=== PATIENT | female | born 1995 | race Caucasian/White ===

== ENCOUNTER → 2018-01-13 | Outpatient (REF) | payer OTHER ==
[~2018-01-13] MED LIST: ACEC5L PO; ALPR-1 PO; AMO500 PO; AZIT-17 PO; CIPR-326 PO; CITA-156 PO; FLUT16SP19 NS; HYDR115S3 PO; LEVO1TAB30 PO; LEVO1TAB9 PO; NO ROUTINE MEDS; PHEN-529 PO; PRE20 PO; SERT-1 PO; SERT-181 PO; TRAZ-156 PO
== END ==
PROVIDERS: ATTEND Nurse Practitioner Family
DX: R30.0 Dysuria (principal); R82.99 Other abnormal findings in urine
CPT/HCPCS: 87088

== ENCOUNTER 2019-01-30 16:20 | Emergency (ER) | payer OTHER ==
[~2019-01-30 16:20] MED LIST changes: -TRAZ-156 PO; +TRAZ50TA34 PO
[2019-01-30] MEDS ORDERED: VENL37.594 PO (16:27)
[2019-01-30] MEDS ORDERED: VENL150C61 PO (16:27)
--- NOTE | 2019-01-30 16:31 | ER Report ---
History and Physical Time Seen By MD: 16:30 Hx. of Stated Complaint: N/V SINCE TUESDAY. STATES KIDNEY INFECTION STARTED TUESDAY AND SHE GOT AN ANTIBIOTIC TODAY FOR IT FROM PCP. CAME IN NOW FOR DEHYDRATION HPI/ROS CHIEF COMPLAINT: Abdominal pain, nausea, vomiting HISTORY OF PRESENT ILLNESS: 23-year-old female patient presents to emergency room with complaint of abdominal pain, nausea, vomiting. Patient states that she has been having abdominal pain for the past several days. She believes that she had a urinary tract infection. 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 Patient states with her primary care provider today who diagnosed with urinary tract infection start her on medication and gave her Zofran. Patient states that she has had worsening pain in the abdomen, she rates it a 7 out of 10. As well as has not been able to keep any food down for the past 2 days. Patient states she has been feverish at home, she's been sweaty, she's been chilled. REVIEW OF SYSTEMS: Respiratory: No cough, no dyspnea. Cardiovascular: No chest pain, no palpitations. Gastrointestinal: As noted above Musculoskeletal: No back pain. Allergies: Coded Allergies: Sulfa (Sulfonamide Antibiotics) (Verified Allergy, Unknown, NAUSEA, HIVES, 12/17/15) Home Meds Active Scripts Hydrocodone Bit/Acetaminophen (HYDROCODON-ACETAMINOPHEN 5-325) 1 Each Tablet, 1 EACH PO Q4-6H PRN for PAIN, #8 TAB Prov:WENDY VALENTE 01/30/19 Sertraline Hcl (ZOLOFT) 50 Mg Tablet, 1 TAB PO QDAY, #30 TAB 5 Refills in addition to 100 mg for total of 150 mg daily Prov:ADELAIDE WINTERS MD 10/05/16 Reported Medications Venlafaxine Hcl (EFFEXOR XR) 150 Mg Cap.er.24h, 150 MG PO QDAY 01/30/19 Venlafaxine Hcl (EFFEXOR XR) 37.5 Mg Cap.er.24h, 37.5 MG PO QDAY 01/30/19 Discontinued Scripts Levonorgestrel-Eth Estradiol (KURVELO) 1 Each Tablet, 1 TAB PO QDAY, #28 TAB 0 Refills Prov:ADELAIDE WNITERS MD 03/06/17 Fluticasone Prop 50 Mcg Ns (FLONASE 50 MCG NS) 16 Gm [place].susp, 2 SPRAYS NS QDAY, #1 BOT 1 Refill Prov:KIM SIN MD 10/25/16 Sertraline Hcl (SERTRALINE HCL) 100 Mg Tablet, 1 TAB PO QDAY, #30 TAB 5 Refills in addition to 50 mg for total of 150 mg Prov:ADELAIDE WINTERS MD 10/05/16 Past Medical/Surgical History Patient has a past medical history of frequent UTI, alcohol use, depression, anxiety. Patient has a surgical history of abdominal surgery, breast reduction. Reviewed Nurses Notes: Yes Hx Smoking: Yes Smoking Status: Former Smoker Hx Substance Use Disorder: No Hx Alcohol Use: Yes (rare) Constitutional Vital Sign - Last 24 Hours 01/30/19 01/30/19 01/30/19 16:23 16:30 19:54 Temp 100.0 98.7 Pulse 104 98 Resp 18 B/P (MAP) 118/74 107/72 (84) Pulse Ox 97 95 O2 Delivery Room Air Physical Exam General Appearance: The patient is alert, has no immediate need for airway protection and no current signs of toxicity. Respiratory: Chest is non tender, lungs are clear to auscultation. Cardiac: regular rate and rhythm Gastrointestinal: Abdomen is soft and diffusely tender, no masses, bowel sounds normal. Musculoskeletal: Neck: Neck is supple and non tender. Extremities have full range of motion and are non tender. Skin: No rashes or lesions. DIFFERENTIAL DIAGNOSIS: After history and physical exam differential diagnosis was considered for abdominal pain including but not limited to appendicitis, cholecystitis, gastritis and urinary tract infection. Medical Decision Making Data Points Laboratory Hematology Test 01/30/19 19:24 Urine Color Yellow Urine Clarity Clear Urine pH 6.0 pH (4.8-9.5) Urine Specific [place] 1.044 Urine Protein 30 mg/dL (NEGATIVE) Urine Glucose (UA) Negative mg/dL (NEGATIVE) Urine Ketones 80 mg/dL (NEGATIVE) Urine Blood Moderate (NEGATIVE) Urine Nitrite Positive (NEGATIVE) Urine Bilirubin Negative (NEGATIVE) Urine Urobilinogen Negative mg/dL (0.2-1.9) Urine Leukocyte Esterase Trace (NEGATIVE) Urine RBC 12 /HPF (0-2/HPF) Urine WBC 25 /HPF (0-5/HPF) Urine Squamous Epithelial Cells Many /LPF (</=FEW) Urine Bacteria Negative /HPF (NONE-FEW) Urine Mucus None /HPF (NONE-FEW) Chemistry Test 01/30/19 19:24 Urine Color Yellow Urine Clarity Clear Urine pH 6.0 pH (4.8-9.5) Urine Specific [place] 1.044 Urine Protein 30 mg/dL (NEGATIVE) Urine Glucose (UA) Negative mg/dL (NEGATIVE) Urine Ketones 80 mg/dL (NEGATIVE) Urine Blood Moderate (NEGATIVE) Urine Nitrite Positive (NEGATIVE) Urine Bilirubin Negative (NEGATIVE) Urine Urobilinogen Negative mg/dL (0.2-1.9) Urine Leukocyte Esterase Trace (NEGATIVE) Urine RBC 12 /HPF (0-2/HPF) Urine WBC 25 /HPF (0-5/HPF) Urine Squamous Epithelial Cells Many /LPF (</=FEW) Urine Bacteria Negative /HPF (NONE-FEW) Urine Mucus None /HPF (NONE-FEW) Urinalysis Test 01/30/19 19:24 Urine Color Yellow Urine Clarity Clear Urine pH 6.0 pH (4.8-9.5) Urine Specific [place] 1.044 Urine Protein 30 mg/dL (NEGATIVE) Urine Glucose (UA) Negative mg/dL (NEGATIVE) Urine Ketones 80 mg/dL (NEGATIVE) Urine Blood Moderate (NEGATIVE) Urine Nitrite Positive (NEGATIVE) Urine Bilirubin Negative (NEGATIVE) Urine Urobilinogen Negative mg/dL (0.2-1.9) Urine Leukocyte Esterase Trace (NEGATIVE) Urine RBC 12 /HPF (0-2/HPF) Urine WBC 25 /HPF (0-5/HPF) Urine Squamous Epithelial Cells Many /LPF (</=FEW) Urine Bacteria Negative /HPF (NONE-FEW) Urine Mucus None /HPF (NONE-FEW) EKG/Imaging Imaging COMPUTED TOMOGRAPHY OF THE Abdomen and Pelvis with CONTRAST INDICATION: Diffuse abdominal pain. Fever. TECHNIQUE: Contiguous axial 3.[address] images were obtained through the abdomen and pelvis after 75 cc [id number]-[id number]. Coronal and sagittal reformatted images were submitted. COMPARISON: CT abdomen and pelvis February 24, 2014. FINDINGS: Lung bases: Trace atelectasis at the lung bases. Liver and hepatic vasculature: No focal liver lesion. Minimal fatty infiltra tion adjacent to the falciform. Gallbladder and bile ducts: Normal gallbladder. Spleen: Normal Pancreas: Normal Adrenals: Normal Kidneys, ureters and bladder: There is heterogeneous disc enhancement of the right kidney. No stone. Minimal stranding adjacent to the proximal right ureter. Normal-appearing bladder. Normal enhancement of the left kidney. Retroperitoneum and aorta: Normal caliber aorta. GI tract, mesentery and peritoneum: Surgically absent appendix. No bowel obstruction. No free fluid or free air. Uterus and adnexa: Unremarkable uterus. There is a 3.4 cm septated cystic structure in the right adnexa. Bones and soft tissues: No acute osseous abnormality. IMPRESSION: 1. Dusky heterogeneous enhancement of the right kidney suggest pyelonephritis. 2. Complex cyst, conglomerate of cysts, or cystic lesion at the right ovary. Nonemergent pelvic ultrasound recommended to evaluate the septation. One of the following dose optimization techniques was utilized in the performance of this exam: Automated exposure control; adjustment of the mA and/or kV according to the patient's size; or use of an iterative reconstruction technique. Specific details can be referenced in the facility's radiology CT exam operational policy. Report Dictated By: Gigi Torres MD at 01/30/2019 6:29 PM Report E-Signed By: Gigi Torres MD at 01/30/2019 6:35 PM ED Course/Re-evaluation ED Course Patient was admitted to an exam room, history and physical were obtained. Differential diagnoses were considered. On examination lungs are clear, heart is regular, abdomen is soft and tender. An IV was started. I did want to get a CBC, CMP. However were not able to get blood out of the IV and took several attempts. We'll go ahead and do the CT scan of the abdomen and pelvis. The CT scan did show signs of pyelonephritis which are consistent with her urinary tract infection as well as her nausea and vomiting. Patient received a liter of normal saline. She did feel better. I did go ahead and give HER-2 grams of Rocephin IV. Patient was able to give us urine sample and we did get a urine culture. Patient complaining of significant amounts of esophageal pain. I believe is likely secondary to the vomiting. However I did do an x-ray which showed no acute cardiopulmonary processes. Patient was then given a GI cocktail. She states that did help with her pain. Patient was able to tolerate drinking. Patient was given some oral pain medication which seemed to help. We'll go ahead and discharge patient home at this time. She is continue the Cipro which was started by her primary care provider. Will change antibiotics depending on the culture. It is my hope that the IV antibiotics will jumpstart improvement with the infection. She is return to emergency room if condition worsens. She states follow-up with her primary care provider in the next week. Patient verbalized understanding and agreement with plan. Decision to Disposition Date: Jan 30, 2019 Decision to Disposition Time: 20:47 Depart Departure Latest Vital Signs Vital Signs Date Time Temp Pulse Resp B/P (MAP) Pulse Ox O2 Delivery O2 Flow Rate FiO2 01/30/19 19:54 98.7 01/30/19 16:30 98 107/72 (84) 95 01/30/19 16:23 18 Room Air Impression: Primary Impression: Pyelonephritis Condition: Improved Disposition: HOME OR SELF-CARE New Scripts Hydrocodone Bit/Acetaminophen (HYDROCODON-ACETAMINOPHEN 5-325) 1 Each Tablet 1 EACH PO Q4-6H PRN for PAIN, #8 TAB Prov: WENDY VALENTE 01/30/19 Patient Instructions: Urinary Tract Infection in Women (ED) Additional Instructions: Increase fluid intake. Get plenty of rest. Limit activity by pain. Take the medication as needed for nausea and vomiting. Return to the ER if condition worsens. Follow up with your primary care provider in the next week. We are culturing the urine so if we need to change antibiotics we will know in 3 days. Continue with the Cipro. WENDY VALENTE Jan 30, 2019 16:31
[2019-01-30] MEDS ORDERED: NS(*) 0.9% 1000 ML BAG 1,000 ML IV ONE ×2 (16:38→18:55)
[2019-01-30] MEDS ORDERED: ONDANSETRON 4 MG/2 ML VIAL IVP ONE (16:40)
[2019-01-30] MEDS ORDERED: MORPHINE 2 MG/ML SYR IVP ONE (16:40)
[2019-01-30] MEDS ORDERED: IOPAMIDOL 76% 150 ML INFUS BTL 150 ML ONE (16:51)
--- NOTE | 2019-01-30 18:39 | RADIOLOGY IMAGING REPORT ---
FACILITY: [facility] PATIENT NAME: Becky Crook : 1995 MR: [id number] V: [id number] EXAM DATE: [id number] ORDERING PHYSICIAN: WENDY VALENTE TECHNOLOGIST: Location: [facility] [place] Patient: Becky Crook : 1995 Visit/Account:[id number] Date of Sevice: 01/30/2019 COMPUTED TOMOGRAPHY OF THE Abdomen and Pelvis with CONTRAST INDICATION: Diffuse abdominal pain. Fever. TECHNIQUE: Contiguous axial 3.[address] images were obtained through the abdomen and pelvis after 75 c c Isovue-[id number]. Coronal and sagittal reformatted images were submitted. COMPARISON: CT abdomen and pelvis February 24, 2014. FINDINGS: Lung bases: Trace atelectasis at the lung bases. Liver and hepatic vasculature: No focal liver lesion. Minimal fatty infiltration adjacent to the fal ciform. Gallbladder and bile ducts: Normal gallbladder. Spleen: Normal Pancreas: Normal Adrenals: Normal Kidneys, ureters and bladder: There is heterogeneous disc enhancement of the right kidney. No stone. Minimal stranding adjacent to the proximal right ureter. Normal-appearing bladder. Normal enhancemen t of the left kidney. Retroperitoneum and aorta: Normal caliber aorta. GI tract, mesentery and peritoneum: Surgically absent appendix. No bowel obstruction. No free fluid o r free air. Uterus and adnexa: Unremarkable uterus. There is a 3.4 cm septated cystic structure in the right adne xa. Bones and soft tissues: No acute osseous abnormality. IMPRESSION: 1. Dusky heterogeneous enhancement of the right kidney suggest pyelonephritis. 2. Complex cyst, conglomerate of cysts, or cystic lesion at the right ovary. Nonemergent pelvic ultra sound recommended to evaluate the septation. One of the following dose optimization techniques was utilized in the performance of this exam: Autom ated exposure control; adjustment of the mA and/or kV according to the patient's size; or use of an i terative reconstruction technique. Specific details can be referenced in the facility's radiology C T exam operational policy. Report Dictated By: Gigi Torres MD at 01/30/2019 6:29 PM Report E-Signed By: Gigi Torres MD at 01/30/2019 6:35 PM WSN:[id number]
[2019-01-30] MEDS ORDERED: cefTRIAXone(*) 2 GM VIAL 2 GM in NS(*) 0.9% 100 ML MINI-BAG 100 ML IVPB ONE (18:55)
[2019-01-30] MEDS ORDERED: APAP/HYDROCODONE 325/5 TAB PO ONE (19:45)
[2019-01-30] MEDS ORDERED: LIDOCAINE 2% VISC SLN 15ML UDC PO ONE (20:00)
[2019-01-30] MEDS ORDERED: MAG HYD/AL HYD/SIMETH 30ML UDC PO ONE (20:00)
[2019-01-30] MEDS ORDERED: HYDR-385 PO (20:45)
[2019-01-30] MEDS ORDERED: ACET/HYDROC 5/325MG TH ER ONLY 2 TAB/BOTTLE PO ONE (20:50)
--- NOTE | 2019-01-30 20:59 | RADIOLOGY IMAGING REPORT ---
FACILITY: [facility] PATIENT NAME: Becky Crook : 1995 MR: [id number] V: [id number] EXAM DATE: ORDERING PHYSICIAN: WENDY VALENTE TECHNOLOGIST: Location: [facility] Patient: Becky Crook : 1995 Visit/Account:[id number] Date of Sevice: 01/30/2019 2 VIEWS CHEST INDICATION: Total and pain with swallowing. COMPARISON: 09/20/2012. FINDINGS: Cardiomediastinal silhouette and pulmonary vessels within normal limits. There is no focal infiltrate or lobar consolidation. There is no pneumothorax or pleural effusion. No nodule. Upper abdomen is unremarkable. No acute bony abnormality. IMPRESSION: 1. No acute cardiopulmonary process. Report Dictated By: Juan Jason at 01/30/2019 8:55 PM Report E-Signed By: Juan Jason at 01/30/2019 8:56 PM WSN:[id number]
[2019-01-30 21:00] VITALS: BP 104/49
== END 2019-01-30 21:02 | disposition home or self-care (01) ==
LOC: ER 16:28
DX: N12 Tubulo-interstitial nephritis, not specified as acute or chronic (principal)
CPT/HCPCS: 71046; 74177; 81001; 87088; 96361; 96365; 96375; 99284; J0696; J2270; J2405; J7030; Q9967; 87077; 87186